=== PATIENT | female | born 1940 | race Caucasian/White ===

== ENCOUNTER 2018-11-26 16:35 | Emergency (ER) | payer BC, MEDICARE ==
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
== END 2018-11-26 18:29 | disposition home or self-care (01) ==
LOC: JP.ED 16:35
DX: S39.012A Strain of muscle, fascia and tendon of lower back, initial encounter (principal); S20.212A Contusion of left front wall of thorax, initial encounter; Z88.5 Allergy status to narcotic agent; Z88.8 Allergy status to other drugs, medicaments and biological substances; Z79.899 Other long term (current) drug therapy; Z79.82 Long term (current) use of aspirin; V49.49XA Driver injured in collision with other motor vehicles in traffic accident, initial encounter; Y92.410 Unspecified street and highway as the place of occurrence of the external cause
CPT/HCPCS: 99283